=== PATIENT | female | born 2000 | race Caucasian/White ===

== ENCOUNTER 2023-02-03 15:05 | Outpatient (CLI) | payer OTHER, SELFPAY ==
[2023-02-03 18:46] LABS: Chlamydia DNA Amplified* NOT DETECTED (No Detected); GC DNA Amplified* NOT DETECTED (No Detected)
== END 2023-02-03 15:06 | disposition home or self-care (01) ==
LOC: NFLDREF 15:05
PROVIDERS: PCP Family Medicine; Visit Provider Physician Assistant
DX: Z11.3 Encounter for screening for infections with a predominantly sexual mode of transmission (principal)
CPT/HCPCS: 87491; 87591

== ENCOUNTER 2023-11-24 15:14 | Outpatient (CLI) | payer OTHER, SELFPAY ==
--- NOTE | 2023-11-24 15:30 | MR_ITS ---
[facility] [address] [facility] [address] Phone:?[phone] Fax:?[phone] Referring Physician Information: Yosi Schulz M.D. [address] [facility] [address] Phone:?[phone] Fax:?[phone] Patient:Sharon Bui D.O.B:?2000 Sex:?Female Phone:?[phone] [facility] MRN:?[id number] Exam Date:?11/24/2023 EXAM: MRI OF THE RIGHT WRIST, WITHOUT CONTRAST CLINICAL: Right wrist pain. COMPARISONS: None available. TECHNICAL: Multiplanar multisequence MRI of the right wrist was obtained. SEDATION: None. CONTRAST: None. FINDINGS: Joints/Osseous structures: No evidence of bone marrow edema, fracture, subluxation or dislocation. No significant osseous changes of arthrosis. There is negative ulnar variance of approximately 3 mm. TFCC: Fibrocartilage disc proper is intact. The remainder of the triangular fibrocartilage complex is intact. Ligaments: Scapholunate: No sprain/tear or disassociation. Lunotriquetral: No sprain/tear. Tendons: Flexors: Intact without significant tendinosis or tenosynovitis. Extensors: ECU & 6th extensor compartment: No significant tendinosis, tear or tenosynovitis. 1st - 5th extensor compartments: Intact without significant tendinosis or tenosynovitis. Neurovascular: Median: Unremarkable carpal tunnel without convincing neuritis or intrinsic/extrinsic masses. Ulnar: Unremarkable Guyon's canal without intrinsic/extrinsic masses. Ganglion cyst formation is noted along the palmar aspect of the second and third CMC joints extending along the palmar aspect of the trapezoid and capitate measuring up to 2 cm in craniocaudal length as seen on coronal series 7 image 7- 8 and axial series 4 images 4-9. The cyst is seen to extend between the flexor pollicis longus tendon and flexor tendons of the second digit. IMPRESSION: 1. No evidence of bone marrow edema, fracture, ligamentous or tendinous injury. Intact TFCC. 2. Ganglion cyst formation within the palmar wrist as above. JCZ Electronically signed on 11/24/2023 4:48:00 PM by Issac Sánchez D.O.
== END 2023-11-24 15:15 | disposition home or self-care (01) ==
LOC: MRI 15:15
PROVIDERS: PCP Physician Assistant; Visit Provider Orthopaedic Surgery Sports Medicine
DX: M25.531 Pain in right wrist (principal); M67.431 Ganglion, right wrist; M24.831 Other specific joint derangements of right wrist, not elsewhere classified
CPT/HCPCS: 73221

== ENCOUNTER 2024-04-11 06:12 | Day surgery (SDC) | payer OTHER, SELFPAY ==
[2024-04-11] VITALS (14 sets, daily range): BP systolic 79–148; BP diastolic 55–104; PULSE 57–100; RESP 16; TEMP 36.6–37.2; O2SAT 94–100; BMI 21.9
--- OUTSIDE RECORDS SUMMARY | 2024-04-11 06:16 | XMS_ITS | Clinical Summary ---
Author Organization [facility] Address [place], [place] [address] Care Team Providers Care Service Line Bus Cleaner Name Role Phone Doroteo Olsen MD Primary Care Provider U navailable Allergies No known active allergies Medications Medication Sig Dispensed Refills Start Date End Date Status TRI-SPRINTEC 0.18/0.215/0.25 mg-35 mcg (28) tabletIndications:Dys menorrhea TAKE 1 TABLET BY MOUTH ONCE DAILY 84 tablet 05/28/2020 Active Active Problems Problem Noted Date Diagnosed Date Patellofemoral pain syndrome 11/22/2013 Immunizations Name Administration Dates Next Due DTaP 11/12/2004, 1,01/04/2000,1999,1999 HIB-HepB (Comvax) 10/11/2000,1999,08/06/19 00 HPV 9 (Gardasil 9) 01/15/2015 Inactivated Polio Vaccine 11/12/2004,09/1999,1999,1999 MMR 11/12/2004,07/01/2000 Pneumococcal conj 13-Valent (Prevnar 13) 10/11/2000,07/01/2000 Tdap 02/04/2012 Varicella Vaccine 02/04/2012,07/01/2000 Family History Medical History Relation Name Comments Good Health Brother Good Health Father Good Health Mother Good Health Sister Relation Name Status Comments Brother Father Mother Sister Social History Tobacco Use Types Packs/Day Years Used Date Smoking Tobacco: Never Smokeless Tobacco: Never Tobacco Cessation:Counseling Given: Yes Comments:No exposure Alcohol Use Standard Drinks/Week Comments No 0 (1 standard drink = 0.6 oz pur e alcohol) PHQ-2 Answer Date Recorded PHQ-2 Score 0 07/02/2019 Social Connections Answer Date Recorded Frequency of Communication with Friends and Fami ly Not on file 06/30/2021 Financial Resource Strain Answer Date R ecorded Difficulty of Paying Living Expenses Not on file 06/30/2021 Difficulty of Paying Living Expenses Not on file 06/30/2021 Sex and Gender Information Value Date Recorded Sex Assigned at Not on file Gender Identity Not on file Sexual Orientation Not on file Obstetrics History Para Term AB IAB SAB Ectopic Multiple Livin g Live Births 0 0 0 0 0 0 0 0 0 0 Last Filed Vital Signs Vital Sign Reading Time Taken Comments Blood Pressure 107/73 03/28/2020 1:04 PM CDT Pulse 82 03/28/2020 1:04 PM CDT Temperature 36.6 ??C (97.8 ??F) 01/03/2018 1:29 PM CD T Respiratory Rate - - Oxygen Saturation 97% 03/28/2020 1:04 PM CDT Inhaled Oxygen Concentration - - Weight 57.9 kg (127 lb 9.6 oz) 03/28/2020 1:04 P M CDT Height 172.1 cm (5' 7.75) 07/02/2019 3:27 PM CS T Body Mass Index - - Plan of Treatment Health Maintenance Due Date Last Done Comments HIV for age 15-65 2014 HPV series for age 9-26 (2 - 3-dose series) 02/12/2015 01/15/2015 Chlamydia for age 16-24 2015 Hepatitis C screening for ag e 18-79 2017 BMI (ht and wt on same day) for age 18+ 07/02/2020 07/02/2019, 03/28/2018, 02/21/2018, Additional history exists Depression screening for age 12+ 07/02/2020 07/02/2019, 03/28/2018, 01/03/2018 Tetanus booster 02/03/2022 02/04/2012 COVID-19 vaccine series ( season) 2024 Influenza for age 9-49 03/04/2024 Pap test for age 21-65 02/03/2026 02/03/2023 Pneumococcal series for age 6-64 Completed 10/12/19 01, 07/01/2000 Tdap Completed 02/04/2012 Procedures Procedure Name Priority Date/Time Associated Diagnosis Comments CUSTODIAL OPERATIONS MANAGER THIN PREP PAP SCREEN IMAGED Routine 02/03/2023 12:00 PM CDT from Last 3 Months or Most Recently Relevant to Health Maintenance Results * CUSTODIAL OPERATIONS MANAGER THIN PREP PAP SCREEN IMAGED (02/03/2023 12:00 PM CDT) Case Report Gynecologic Cytology Report ? Case: [id number] ? Authorizing Provider: ??Sarahi Mora PA-C ?Collected: ? 02/03/2023 1200 ? Ordering Location: ? [facility] ?Received: ?02/07/2023 1515 ? First Screen: ?Georgiana Campbell ? Specimen: ?CUSTODIAL OPERATIONS MANAGER ThinPrep Vial Screening, Cervical ? 02/18/2023 7:52 PM CDT [facility] INTERPRETATION/ RESULT NEGATIVE FOR INTRAEPITHELIAL LESION OR MALIGNANCY (NIL) (none) 02/18/2023 7:52 PM CDT [facility] IMEN ADEQUACY Satisfactory for evaluation Endocervical component present 02/18/2023 7:52 PM CDT [facility] HPV REQUEST HPV not requested 2022 7:52 PM CDT [facility] Date of LMP 01/09/2023 02/18/2023 7:52 PM CDT [facility] Last Pap Date 02/18/2023 7:52 PM CDT [facility] Comment:n/a Last Pap Result 7:52 PM CDT [facility] Comment:n/a Abnormal Pap or [place] Bx in last 5 years No 02/18/2023 7:52 PM CDT [facility] Menstrual Status Regular Periods 02/18/2023 7:52 PM CDT [facility] [place] Bx Done Today No 02/18/2023 7:52 PM CDT [facility] Additional Information 02/18/2023 7:52 PM CDT [facility] Comment: Interpreted at [facility], Central Laboratory - [address] [facility] [address], [place] [address] Automated Review Successful 02/18/2023 7:52 PM CDT [facility] Comment:Specimen processed s uccessfully by automated stained glass glazier device, ThinPrep Imaging System, [employer] Note The pap test is a screening technique, not a diagnostic procedure. It is used primarily to screen for squamous cancers and precursor lesions. Published studies have shown that it is subject to both false negative and false positive results. The pap test should not be used as the sole means to diagnose or exclude pre-malignant and malignant lesions. 02/18/2023 7:52 PM CDT [facility] Other (Cervical) 02/03/2023 12:00 PM CDT 02/07/2023 3:15 PM CDT Sarahi Mora PA-C PATHOLOGY/CYTOLOGY [facility] [address] [place] [address], from Last 3 Months or Most Recently Relevant to Health Maintenance Care Teams Service Line Bus Cleaner Relationship Specialty Start Date End Date Doroteo Olsen MD PCP - General 12/16/05
[2024-04-11] MEDS: BUPIVACAINE 0.5% 30 ML INJECTION (06:50)
[2024-04-11] MEDS: LIDOCAINE 1%-EPI 1:100,000 20 ML INFILTRATI ×2 (06:50→07:36)
--- NOTE | 2024-04-11 07:41 | SUR.OPER ---
Surgeon requested anesthesiologist come into room. Patient's anesthesia went from local to MAC.
--- NOTE | 2024-04-11 08:02 | PM.ORPRC ---
Procedure Note Date of procedure: 04/11/24 Procedure: PREOPERATIVE DIAGNOSIS: 1. Right volar hand-based cyst, deep to the carpal tunnel contents POSTOPERATIVE DIAGNOSIS: 1. Right volar hand-based cyst, deep to the carpal tunnel contents PROCEDURE: 1. Right open carpal tunnel release 2. Right volar hand-based cyst open debridement SURGEON: Yosi Schulz MD. AUTOMOTIVE TIRE TECHNICIAN: JEVON Shea ANESTHESIA: Local anesthetic (50:50 mixture of 1 % lidocaine with epi and 0.5% marcaine plain) - 10ml total IMPLANTS: None EBL: 2 mL TOURNIQUET: None COMPLICATIONS: None evident INDICATIONS: The patient is a pleasant 23-year-old female who has experienced right volar hand-based pain with passive wrist extension such as when doing plank pose or pushups. An MRI was obtained revealed a volar radial sided hand-based cyst. This was relatively narrow but long. It has progressively gotten worse. Nonoperative management has been tried and failed, and therefore surgery was recommended. DESCRIPTION OF PROCEDURE: Following a thorough discussion of risks, benefits, and alternatives consent was obtained and the operative extremity was marked. The patient was brought to the operating room and placed supine on the operating table. Local anesthesia induction was undertaken in preop holding. No antibiotics were administered as this was planned to be a local case only. Proper time-out was performed identifying proper patient, site, and procedure. The operative extremity was prepped and draped in the appropriate sterile fashion using ChloraPrep. An incision was made in line with the radial border of the ring finger beginning 1 cm distal to the distal wrist crease and progressing for another 2.5cm distal. Caution was taken to stay proximal to Lafleur's cardinal line. Sharp incision through the skin, subcutaneous tissue, and palmar fascia was performed. The thenar musculature was bluntly elevated off the transverse carpal ligament. The ligament was directly visualized, and divided sharply with a 15 blade. This was released from its most proximal to the most distal extent. Metzenbaum scissor was also utilized to release the fascia extension proximally. We confirmed complete release of the transverse carpal ligament. At this stage, the median nerve was retracted ulnarly, the FPL tendon was identified and retracted both radially and ulnarly, and the deeper dissection completed with the tenotomy scissors. The patient had some discomfort to the point that local anesthetic was insufficient. Thus, anesthesia was able to be administered by our anesthesia team through IV. Once her pain was more appropriately controlled, further dissection again with tenotomy scissors and 25 gauge needle was performed deep to the FPL tendon consistent with the MRI anatomic location. The cyst was roughly at the level of the thumb CMC joint from a proximal-distal direction and deep to the palmaris longus/FPL tendon alignment. Despite notable dissection in this area, no clear cyst was encountered. Again 25 gauge needle was utilized to fenestrate the tissue in this area which was felt to be slightly bulbous and thought to be cystic. No fluid was clearly encountered. This may have been masked by the local anesthetic that was administered in the region as well. At this stage, thorough irrigation normal saline was performed. Closure was performed with 4-O nylon in interrupted fashion. Soft dressings were applied, and the patient was transferred to the recovery room in stable condition. PLAN: 1. Encourage elevation of the operative extremity. 2. Range of motion of the fingers and hand/wrist as tolerated. 3. Ibuprofen/acetaminophen and/or oxycodone as needed for pain control. 4. Follow up with PA visit or nurse visit in 12-16 days for wound check and suture removal.
--- NOTE | 2024-04-11 08:08 | W.ANESCHARGE ---
Anesthesia Charges Start Date/Time Anesthesia Start Date: 04/11/24 Anesthesia Start Time: 07:35 Stop Date/Time Anesthesia Stop Date: 04/11/24 Anesthesia Stop Time: 08:08
--- NOTE | 2024-04-11 08:35 | W.ANESCHARGE ---
Anesthesia Charges Start Date/Time Anesthesia Start Date: 04/11/24 Anesthesia Start Time: 07:35 Stop Date/Time Anesthesia Stop Date: 04/11/24 Anesthesia Stop Time: 08:08
[2024-04-11] MEDS: LACTATED RINGERS 500 ML 500 ML IV (08:40)
[2024-04-11] MEDS: ONDANSETRON 2 MG/ML inj 4 MG IVP (09:00)
== END 2024-04-11 10:08 | disposition home or self-care (01) ==
LOC: OR 06:14
PROVIDERS: Visit Provider Orthopaedic Surgery Sports Medicine
PROC: (CPT 64721; principal; 2024-04-11 07:15)
PROC: (CPT 64721; 2024-04-11 07:15)
DX: G56.01 Carpal tunnel syndrome, right upper limb (principal); M67.431 Ganglion, right wrist
CPT/HCPCS: 64721; 25111; 01810; J0665; J2250; J2405; J2704; J3010; J7120

== ENCOUNTER 2024-05-03 14:29 | Outpatient (CLI) | payer OTHER, SELFPAY ==
--- OUTSIDE RECORDS SUMMARY | 2024-05-03 14:31 | XMS_ITS | Clinical Summary ---
Author Organization [facility] Address [place], [place] [address] Care Team Providers Care Robotics Specialist Name Role Phone Doroteo Olsen MD Primary [...] Procedure Name Priority Date/Time Associated Diagnosis Comments PROOF INSPECTOR THIN PREP PAP SCREEN IMAGED Routine 02/03/2023 12:00 PM CDT from Last 3 Months or Most Recently Relevant to Health Maintenance Results * PROOF INSPECTOR THIN PREP PAP SCREEN IMAGED (02/03/2023 12:00 PM CDT) Case Report Gynecologic Cytology Report ? Case: [id number] ? Authorizing Provider: ??Sarahi Mora PA-C ?Collected: ? 02/03/2023 1200 ? Ordering Location: ? [facility] ?Received: ?02/07/2023 1515 ? First Screen: ?Georgiana Campbell ? Specimen: ?PROOF INSPECTOR ThinPrep Vial Screening, Cervical ? 02/18/2023 7:52 PM CDT [facility] INTERPRETATION/ RESULT NEGATIVE FOR INTRAEPITHELIAL LESION OR MALIGNANCY (NIL) (none) 02/18/2023 7:52 PM CDT [facility] IMEN ADEQUACY Satisfactory for evaluation Endocervical component present 02/18/2023 7:52 PM CDT [facility] HPV REQUEST HPV not requested 2022 7:52 PM CDT [facility] Date of LMP 01/09/2023 02/18/2023 7:52 PM CDT [facility] Last Pap Date 02/18/2023 7:52 PM CDT [facility] Comment:n/a Last Pap Result 7:52 PM CDT [facility] Comment:n/a Abnormal Pap or [place] Bx in last 5 years No 02/18/2023 7:52 PM CDT [facility] Menstrual Status Regular Periods 02/18/2023 7:52 PM CDT [facility] [place] Bx Done Today No 02/18/2023 7:52 PM CDT [facility] Additional Information 02/18/2023 7:52 PM CDT [facility] Comment: Interpreted at [facility], Central Laboratory - [address] [facility] [address], [place] [address] Automated Review Successful 02/18/2023 7:52 PM CDT [facility] Comment:Specimen processed s uccessfully by automated hvac field service technician device, ThinPrep Imaging System, [employer] Note The pap test is a [...] and malignant lesions. 02/18/2023 7:52 PM CDT [facility] Other (Cervical) 02/03/2023 12:00 PM CDT 02/07/2023 3:15 PM CDT Sarahi Mora PA-C PATHOLOGY/CYTOLOGY [facility] [address] [place] [address], from Last 3 Months or Most Recently Relevant to Health Maintenance Care Teams Robotics Specialist Relationship Specialty Start Date End Date Doroteo Olsen MD PCP - General 12/16/05
== END 2024-05-03 14:30 | disposition home or self-care (01) ==
LOC: NFLDREF 14:29
PROVIDERS: Visit Provider Physician Assistant
DX: Z13.220 Encounter for screening for lipoid disorders (principal)
CPT/HCPCS: 80061

== ENCOUNTER 2025-03-15 08:21 | Outpatient (CLI) | payer BC, SELFPAY ==
--- NOTE | 2025-03-15 09:15 | CRLHL7_ITS ---
For Patients: As a result of the Century Cures Act, medical imaging exams and procedure reports are released immediately into your electronic medical record. You may view this report before your referring provider. If you have questions, please contact your health care provider. CLINICAL HISTORY: pelvic pain COMPARISON: None. TECHNIQUE: 2D jade-scale ultrasound. In addition, color Doppler and spectral Doppler analysis was performed of the pelvis using a transabdominal and transvaginal approach. Transvaginal imaging performed to better visualize the endometrial stripe and ovaries. FINDINGS: The uterus measures 8.1 x 3.0 x 3.9 cm. The endometrial lining appears normal and measures 3.4 mm in thickness. The right ovary measures 2.2 x 1.0 x 1.7 cm in size and the left ovary measures 2.1 x 1.5 x 1.8 cm. The ovaries demonstrate normal arterial and venous blood flow on color Doppler and spectral Doppler analysis. There are no suspicious fluid collections within the cul-de-sac. IMPRESSION: Normal pelvic ultrasound. Dictated by Ferdinand Aguilar MD @ 03/15/2025 1:59:37 PM (Electronically Signed)
== END 2025-03-15 08:22 | disposition home or self-care (01) ==
LOC: US 08:22
PROVIDERS: Visit Provider Physician Assistant
DX: R10.2 Pelvic and perineal pain (principal)
CPT/HCPCS: 76830; 76856; 87086; 87491; 87591; 93976